=== PATIENT | male | born 1960 | race Hispanic/Latino ===

== ENCOUNTER 2020-09-23 06:38 | Day surgery (SDC) | payer OTHER ==
[2020-09-16 11:33] LABS: BASOPHILS % (AUTO) 1.2 % (0.0-5.0); EOSINOPHILS % (AUTO) 2.8 % (0.0-8.0); HEMATOCRIT 41.5 % (42-54); LYMPHOCYTES % (AUTO) 24.2 % (21.0-51.0); MEAN CORPUSCULAR HEMOGLOBIN 28.9 pg (27.0-33.0); MEAN CORPUSCULAR HGB CONC 33.3 g/dL (32.0-36.0); MONOCYTES % (AUTO) 9.4 % (3.0-13.0); NEUTROPHILS % (AUTO) 62.2 % (40.0-77.0); PLATELET COUNT (AUTO) 268 K/uL (130-400); RED BLOOD CELL COUNT(AUTO) 4.77 MIL/uL (4.50-6.20); RED CELL DISTRIBUTION WIDTH 12.3 % (11.0-15.5); WHITE BLOOD COUNT (AUTO) 8.3 K/uL (4.8-10.8)
[2020-09-16 11:52] LABS: CREATININE 1.1 mg/dL (0.5-1.5); POTASSIUM 3.6 mmol/L (3.5-5.1)
[2020-09-17 14:35] VITALS: BP 153/83
[2020-09-23] VITALS (17 sets, daily range): BP systolic 114–154; BP diastolic 66–87
[~2020-09-23] VITALS: Ht 180.3 cm; Wt 96.7 kg
[~2020-09-23 06:38] MED LIST: AEC81 PO; CEFAZOLIN SODIUM 1 GM VIAL IVP SCH; HYDR12.54 PO; LOVA10TA2 PO; METF-446 PO; OMEP20TA25 PO; SODIUM CHLORIDE 0.9% 500ML 500 ML IV SCH
[2020-09-23] MEDS ORDERED: LIDOCAINE PF 2% 5ML ABBOJECT ONE (07:35)
[2020-09-23] MEDS ORDERED: SUCCINYLCHOLINE 200MG/10ML SYR ONE (07:35)
[2020-09-23] MEDS ORDERED: MIDAZOLAM HCL 1 MG/ML 2ML VIAL ONE (07:36)
[2020-09-23] MEDS ORDERED: ROCURONIUM 10MG/1ML SYR 10 MG/ML ML ONE (07:36)
[2020-09-23] MEDS ORDERED: PROPOFOL 10 MG/ML 20ML VIAL IV ONE (07:36)
[2020-09-23] MEDS ORDERED: FENTANYL CITRATE PF 50 MCG/1 ML 2ML VIAL ONE (07:36)
[2020-09-23] MEDS ORDERED: BUPIVACAINE/PF 0.5% 30ML VIAL ONE ×2 (07:36→10:04)
[2020-09-23] MEDS ORDERED: CEFAZOLIN SODIUM 1 GM VIAL ONE (07:51)
[2020-09-23] MEDS ORDERED: SODIUM CHLORIDE 0.9% 1000ML 1,000 ML IV ONE (08:04)
[2020-09-23] MEDS ORDERED: GLYCOPYRROLATE 1 MG/5 ML SYRINGE ONE (08:33)
[2020-09-23] MEDS ORDERED: NEOSTIGMINE 5MG/5ML SYR IV ONE (08:33)
[2020-09-23] MEDS ORDERED: ONDANSETRON HCL 4 MG/2 ML VIAL ONE (08:33)
[2020-09-23] MEDS ORDERED: MEPERIDINE-PF 25 MG/ML SYG ONE (09:59)
--- NOTE | 2020-09-23 10:50 | NUR ---
POST OP RECEIVED PT ANSD REPORT FROM KHALIF HEATH RN FROM PACU. PT IN NO DISTRESS AT THIS TIME. LARGE BANDAIDS X4 TO AMB CLEAN AND DRY. PT ORIENTED TO ROOM AND CALL LIGHT. WILL CONTINUE TO MONITOR. SPOUSE IN ROOM
--- NOTE | 2020-09-23 11:25 | NUR ---
DISCHARGE PT TAKEN OUT VIA W/C BY MESERET CATHERINE. PT IN NO DISTRESS AT THIS TIME. AT SIDE. DRESSING CLEAN AND DRY
== END 2020-09-23 11:25 | disposition home or self-care (01) ==
LOC: DAH 06:38
PROVIDERS: ATTEND Surgery
DX: K80.12 Calculus of gallbladder with acute and chronic cholecystitis without obstruction (principal); Z20.828 Contact with and (suspected) exposure to other viral communicable diseases; E11.9 Type 2 diabetes mellitus without complications; K21.9 Gastro-esophageal reflux disease without esophagitis; E78.5 Hyperlipidemia, unspecified; Z98.890 Other specified postprocedural states; Z83.3 Family history of diabetes mellitus; Z79.82 Long term (current) use of aspirin; Z79.84 Long term (current) use of oral hypoglycemic drugs; Z79.899 Other long term (current) drug therapy
CPT/HCPCS: 47562; S2900; 36415; 80048; 82948; 85025; J0330; J0690; J2001; J2175; J2250; J2405; J2704; J2710; J3010; J3490; J7030; J7040; U0003